=== PATIENT | female | born 2000 | race Caucasian/White ===

== ENCOUNTER 2021-04-25 22:21 | Emergency (ER) | payer MEDICAID ==
[~2021-04-25] VITALS: Ht 165.1 cm; Wt 81.8 kg
[2021-04-25 22:22] VITALS: TEMP 97.7
[2021-04-25 22:57] VITALS: BP 131/85; PULSE 72
[2021-05-20] MEDS ORDERED: CEPHALEXIN500 M1 PO (05:52)
== END 2021-04-25 22:57 | disposition home or self-care (01) ==
LOC: COL.ER 22:21
DX: R10.30 Lower abdominal pain, unspecified (principal); L05.91 Pilonidal cyst without abscess

== ENCOUNTER 2021-05-12 21:08 | Emergency (ER) | payer MEDICAID ==
[2021-05-20] MEDS ORDERED: CEPHALEXIN500 M1 PO (05:52)
== END 2021-05-12 21:15 | disposition left against medical advice (07) ==
LOC: COL.ER 21:08
DX: R69 Illness, unspecified (principal)

== ENCOUNTER 2021-05-18 08:14 | Emergency (ER) | payer MEDICAID ==
[~2021-05-18] VITALS: Ht 152.4 cm; Wt 83.6 kg
[2021-05-18 08:15] VITALS: TEMP 98.8
[2021-05-18 08:36] LABS: COLLECTION METHOD CLEAN CATCH
[2021-05-18 08:42] LABS: BASO # 0.1 (0.0-0.2); BASO % 0.8 % (0.0-2.0); EOS # 0.2 (0.0-0.7); EOS % 3.4 % (0-4.0); GRAN % 61.1 % (42.2-75.2); HEMATOCRIT 39.7 % (37.0-47.0); HEMOGLOBIN 13.3 g/dl (12.5-16.0); LYMPH # 1.7 (1.2-3.4); LYMPH % 26.4 % (20.0-51.0); MEAN CELL VOLUME 85 fl (80.0-100.0); MEAN CORPUSCULAR HEMOGLOBIN 28 pg (27.0-31.0); MEAN CORPUSCULAR HGB CONC 34 g/dl (33.0-37.0); MEAN PLATELET VOLUME 11.6 fl (7.4-10.4); MONO # 0.5 (0.1-0.6); PLATELET COUNT 211 K/mm3 (130-400); RED BLOOD COUNT 4.68 M/mm3 (4.10-5.30); REDCELL DISTRIBUTION WIDTH-CV 14.2 % (11.5-14.5)
[2021-05-18 08:51] LABS: MUCOUS Present /lpf; PH 6 (5-8); SQUAMOUS EPITHELIAL >50 /hpf; URINE APPEARANCE Cloudy; URINE BACTERIA Rare /hpf; URINE BILIRUBIN Negative (NEGATIVE); URINE BLOOD Negative (NEGATIVE); URINE COLOR Yellow; URINE GLUCOSE Negative (NEGATIVE); URINE KETONE Negative (NEGATIVE); URINE LEUKOCYTE ESTERASE Trace (NEGATIVE); URINE NITRATE Negative (NEGATIVE); URINE PROTEIN(semi-quant) 1+ (NEGATIVE); URINE RBC 0-2 /hpf
[2021-05-18 12:45] VITALS: BP 111/62; PULSE 60
[2021-05-20] MEDS ORDERED: CEPHALEXIN500 M1 PO (05:52)
== END 2021-05-18 12:45 | disposition home or self-care (01) ==
LOC: COL.ER 08:14
PROVIDERS: Family Medicine
DX: O26.891 Other specified pregnancy related conditions, first trimester (principal); R10.2 Pelvic and perineal pain; Z3A.08 8 weeks gestation of pregnancy
CPT/HCPCS: J7120

== ENCOUNTER 2021-06-05 22:11 | Emergency (ER) | payer MEDICAID ==
[~2021-06-05] VITALS: Ht 165.1 cm; Wt 81.8 kg
[~2021-06-05 22:11] MED LIST: CEPHALEXIN500 M1 PO
[2021-06-05 23:15] VITALS: TEMP 98.3
[2021-06-06 00:02] VITALS: BP 108/70; PULSE 60
== END 2021-06-06 00:02 | disposition home or self-care (01) ==
LOC: COL.ER 22:11
DX: O26.891 Other specified pregnancy related conditions, first trimester (principal); R10.30 Lower abdominal pain, unspecified; O99.331 Smoking (tobacco) complicating pregnancy, first trimester; F17.210 Nicotine dependence, cigarettes, uncomplicated; I10 Essential (primary) hypertension; Z3A.12 12 weeks gestation of pregnancy

== ENCOUNTER 2021-06-06 11:01 | Emergency (ER) | payer MEDICAID ==
[~2021-06-06] VITALS: Ht 165.1 cm; Wt 83.6 kg
[2021-06-06 12:32] LABS: COLLECTION METHOD CLEAN CATCH
[2021-06-06 12:39] LABS: MUCOUS Present /lpf; PH 7 (5-8); URINE APPEARANCE Cloudy; URINE BACTERIA Rare /hpf; URINE BILIRUBIN Negative (NEGATIVE); URINE BLOOD Negative (NEGATIVE); URINE COLOR Yellow; URINE GLUCOSE Negative (NEGATIVE); URINE KETONE Trace (NEGATIVE); URINE LEUKOCYTE ESTERASE Negative (NEGATIVE); URINE NITRATE Negative (NEGATIVE); URINE PROTEIN(semi-quant) Negative (NEGATIVE); URINE UROBILINOGEN Negative (NEGATIVE)
[2021-06-06 13:25] VITALS: BP 115/64; PULSE 68; TEMP 98.5
== END 2021-06-06 13:25 | disposition home or self-care (01) ==
LOC: COL.ER 11:01
PROVIDERS: Nurse Practitioner Primary Care
DX: O26.891 Other specified pregnancy related conditions, first trimester (principal); R10.30 Lower abdominal pain, unspecified; O99.331 Smoking (tobacco) complicating pregnancy, first trimester; F17.210 Nicotine dependence, cigarettes, uncomplicated; I10 Essential (primary) hypertension; Z3A.12 12 weeks gestation of pregnancy
CPT/HCPCS: J7030

== ENCOUNTER 2021-06-12 17:34 | Emergency (ER) | payer MEDICAID ==
[~2021-06-12] VITALS: Ht 165.1 cm; Wt 86.4 kg
[2021-06-12 18:55] VITALS: TEMP 98.4
[2021-06-12 20:20] VITALS: BP 131/67; PULSE 65
== END 2021-06-12 18:55 | disposition home or self-care (01) ==
LOC: COL.ER 17:34
DX: O9A.411 Sexual abuse complicating pregnancy, first trimester (principal); O16.1 Unspecified maternal hypertension, first trimester; O99.331 Smoking (tobacco) complicating pregnancy, first trimester; F17.200 Nicotine dependence, unspecified, uncomplicated; Z3A.13 13 weeks gestation of pregnancy

== ENCOUNTER 2021-06-14 00:12 | Emergency (ER) | payer MEDICAID ==
[~2021-06-14] VITALS: Ht 165.1 cm; Wt 86.4 kg
[2021-06-14 00:52] LABS: COLLECTION METHOD CLEAN CATCH
[2021-06-14 00:57] LABS: MUCOUS Present /lpf; PH 6 (5-8); URINE APPEARANCE Hazy; URINE BACTERIA Rare /hpf; URINE BILIRUBIN Negative (NEGATIVE); URINE BLOOD Negative (NEGATIVE); URINE COLOR Yellow; URINE GLUCOSE Negative (NEGATIVE); URINE KETONE Negative (NEGATIVE); URINE LEUKOCYTE ESTERASE 1+ (NEGATIVE); URINE NITRATE Negative (NEGATIVE); URINE PROTEIN(semi-quant) Negative (NEGATIVE); URINE UROBILINOGEN Negative (NEGATIVE)
[2021-06-14] MEDS ORDERED: OMNICEF 300MG300 MG PO (02:54)
[2021-06-14 03:12] VITALS: BP 118/68; PULSE 67; TEMP 98.3
== END 2021-06-14 03:12 | disposition home or self-care (01) ==
LOC: COL.ER 00:12
PROVIDERS: Nurse Practitioner Primary Care
DX: O23.11 Infections of bladder in pregnancy, first trimester (principal); O16.1 Unspecified maternal hypertension, first trimester; Z3A.13 13 weeks gestation of pregnancy